=== PATIENT | male | born 1955 | race African-American/Black ===

== ENCOUNTER 2022-07-08 13:28 | Inpatient (IN) ==
[2022-07-08] MEDS ORDERED: ASPIRIN 325 MG TABLET PO STA (14:02)
[2022-07-08] MEDS ORDERED: NITROGLYCERIN SL 0.4 MG TABLET SL PRN (14:02)
[2022-07-08] MEDS ORDERED: hydrALAZINE 20 MG/1 ML VIAL IV STA ×2 (14:03→15:34)
[2022-07-08 14:20] LABS: Basophils % 0.4 % (0.0-0.8); Eosinophils # 0.1 10*3/uL (0.0-0.87); Eosinophils % 0.8 % (0.00-10.9); Hematocrit 38.8 VOL% (42.0-52.0); Hemoglobin 11.8 GM/DL (14.0-18.0); Immature Granulocytes % 0.9 %; Immature Granulocytes Absolute 0.09 #; Lymphocytes # 1.4 10*3/uL (1.4-4.0); Lymphocytes % 13.3 % (21.2-54.2); Mean Corpuscular HGB Conc 30.4 GM/DL (32-36); Mean Corpuscular Volume 86.4 FL (87-102); Mean Platelet Volume 10.6 FL (9.6-12.0); Monocytes # 1.1 10*3/uL (0.11-0.8); Monocytes % 10.5 % (1.7-12.7); NRBC # 0.04 10*3/uL; Neutrophils % 74.1 % (38.7-73.9); Platelet Count 243 T/CUMM (130-400); Red Blood Count 4.49 MC/CUMM (3.8-5.5); Red Cell Distribution Width 15.9 % (9.3-17.3); White Blood Count 10.5 T/CUMM (4-12)
[2022-07-08 14:32] LABS: INR 1.1; PT Patient Result 11.9 SECS (10.1-12.1); Partial Thromboplastin Time 24.3 SECS (23.7-32.9)
[2022-07-08 14:44] LABS: Albumin 3.3 G/DL (3.4-5.0); Bilirubin,Total 0.6 MG/DL (0.20-1.00); Calcium 8.8 MG/DL (8.5-10.1); Osmolality,Calculated 290.5 MOS/KG (273-304); Potassium 3.2 MMOL/L (3.5-5.1); Total Protein 7.4 G/DL (6.4-8.2)
[2022-07-08] MEDS ORDERED: MORPHINE 2 MG/1 ML SYRINGE IV STA (15:35)
[2022-07-08] MEDS ORDERED: MORPHINE 2 MG/1 ML SYRINGE ONE (15:35)
[2022-07-08] MEDS ORDERED: FUROSEMIDE 40 MG/4 ML VIAL IV STA (15:46)
[2022-07-08] MEDS ORDERED: SODIUM CHLORIDE 0.9% 2,000 ML IV STA (17:22)
[2022-07-08] MEDS ORDERED: APIXABAN 5 MG TABLET PO STA (17:22)
[2022-07-08] MEDS ORDERED: HYDROmorphone 1 MG/1 ML SYRINGE IV PRN (17:54)
[2022-07-08] MEDS ORDERED: ONDANSETRON 4 MG/2 ML VIAL IV PRN (17:54)
[2022-07-08] MEDS ORDERED: DEXTROSE 10% 250 ML BAG IV PRN (17:58)
[2022-07-08] MEDS ORDERED: DEXTROSE 50% 25 GM/50 ML VIAL IV PRN (17:58)
[2022-07-08] MEDS ORDERED: GLUCAGON 1 MG VIAL IM PRN (17:58)
[2022-07-08] MEDS ORDERED: POTASSIUM CHLORIDE 20 MEQ TABLET PO ONE (20:48)
[2022-07-08] MEDS: cloNIDine 0.1 MG TABLET PO SCH (22:30)
[2022-07-08] MEDS: ATORVASTATIN 40 MG TABLET PO SCH (22:30)
[2022-07-08] MEDS: GABAPENTIN 300 MG CAPSULE PO SCH (22:30)
[2022-07-08] MEDS: LABETALOL 100 MG TABLET PO SCH (22:30)
[2022-07-08] MEDS: SODIUM CHLORIDE 0.9% 1,000 ML IV SCH (22:30)
[2022-07-09 06:08] LABS: Basophils % 0.3 % (0.0-0.8); Eosinophils # 0.1 10*3/uL (0.0-0.87); Eosinophils % 0.8 % (0.00-10.9); Hematocrit 37.9 VOL% (42.0-52.0); Hemoglobin 11.9 GM/DL (14.0-18.0); Immature Granulocytes % 1.2 %; Lymphocytes # 1.7 10*3/uL (1.4-4.0); Lymphocytes % 19.9 % (21.2-54.2); Mean Corpuscular HGB Conc 31.4 GM/DL (32-36); Mean Corpuscular Volume 85.7 FL (87-102); Mean Platelet Volume 10.7 FL (9.6-12.0); Monocytes # 1.4 10*3/uL (0.11-0.8); Monocytes % 15.9 % (1.7-12.7); NRBC # 0.02 10*3/uL; Neutrophils % 61.9 % (38.7-73.9); Platelet Count 276 T/CUMM (130-400); Red Blood Count 4.42 MC/CUMM (3.8-5.5); Red Cell Distribution Width 15.8 % (9.3-17.3); White Blood Count 8.6 T/CUMM (4-12)
[2022-07-09 06:24] LABS: Calcium 8.8 MG/DL (8.5-10.1); Osmolality,Calculated 287.5 MOS/KG (273-304); Potassium 3.1 MMOL/L (3.5-5.1)
[2022-07-09 06:53] LABS: Anisocytosis Slight; Band Neutrophils 2 % (0-10); Eosinophils 1 % (0-10); Lymphocytes 22 % (20-55); Metamyelocytes 1 %; Nucleated Red Blood Cells 1 /100 WBC (0-5); Platelet Estimate Normal; Total Cells Counted 100
[2022-07-09] MEDS: INSULIN REGULAR 100 UNIT/ML SUBCUT SCH ×2 (08:44→16:32)
[2022-07-09] MEDS: FUROSEMIDE 40 MG/4 ML VIAL IV SCH (08:44)
[2022-07-09] MEDS: cloNIDine 0.1 MG TABLET PO SCH ×3 (08:44→21:10)
[2022-07-09] MEDS: LABETALOL 100 MG TABLET PO SCH ×2 (08:45→21:08)
[2022-07-09] MEDS: ASPIRIN EC 81 MG TABLET PO SCH (08:45)
[2022-07-09] MEDS: allopurinoL 300 MG TABLET PO SCH (08:45)
[2022-07-09] MEDS: DOCUSATE SODIUM 100 MG CAPSULE PO SCH (08:45)
[2022-07-09] MEDS: metOLazone 2.5 MG TABLET PO SCH (08:45)
[2022-07-09] MEDS: APIXABAN 5 MG TABLET PO SCH ×2 (08:45→21:09)
[2022-07-09] MEDS: PANTOPRAZOLE 40 MG TABLET PO SCH (08:45)
[2022-07-09] MEDS: POTASSIUM CHLORIDE 20 MEQ TABLET PO PRN ×2 (08:46→14:00)
[2022-07-09] MEDS: LINACLOTIDE 145 MCG CAPSULE PO SCH (08:46)
[2022-07-09] MEDS: amLODIPine 10 MG TABLET PO SCH (08:46)
[2022-07-09] MEDS: ISOSORBIDE MONONITRATE 60 MG TABLET PO SCH (08:46)
[2022-07-09] MEDS ORDERED: hydrALAZINE 25 MG TABLET PO SCH (09:00)
[2022-07-09] MEDS ORDERED: LOSARTAN 25 MG TABLET PO SCH (09:00)
[2022-07-09] MEDS ORDERED: POTASSIUM CHLORIDE 20 MEQ TABLET PO SCH (09:00)
[2022-07-09] MEDS ORDERED: MAGNESIUM SULF RIDER 2 GM/50 ML PREMIX IV ONE (12:19)
[2022-07-09] MEDS: LIDOCAINE 5% PATCH TRANSDERM SCH (14:04)
[2022-07-09] MEDS: SODIUM CHLORIDE 0.9% 1,000 ML IV SCH (16:06)
[2022-07-09] MEDS: GABAPENTIN 300 MG CAPSULE PO SCH (21:09)
[2022-07-09] MEDS: ATORVASTATIN 40 MG TABLET PO SCH (21:10)
[2022-07-10] MEDS ORDERED: MAGNESIUM SULF RIDER 2 GM/50 ML PREMIX IV ONE (06:00)
[2022-07-10 06:20] LABS: Calcium 9.3 MG/DL (8.5-10.1); Osmolality,Calculated 290.3 MOS/KG (273-304); Potassium 3.4 MMOL/L (3.5-5.1)
[2022-07-10] MEDS: amLODIPine 10 MG TABLET PO SCH (08:52)
[2022-07-10] MEDS: ISOSORBIDE MONONITRATE 60 MG TABLET PO SCH (08:52)
[2022-07-10] MEDS: APIXABAN 5 MG TABLET PO SCH ×2 (08:52→20:55)
[2022-07-10] MEDS: ASPIRIN EC 81 MG TABLET PO SCH (08:52)
[2022-07-10] MEDS: cloNIDine 0.1 MG TABLET PO SCH ×3 (08:53→20:55)
[2022-07-10] MEDS: PANTOPRAZOLE 40 MG TABLET PO SCH (08:53)
[2022-07-10] MEDS: allopurinoL 300 MG TABLET PO SCH (08:53)
[2022-07-10] MEDS: LABETALOL 100 MG TABLET PO SCH ×2 (08:53→20:54)
[2022-07-10] MEDS: FUROSEMIDE 40 MG/4 ML VIAL IV SCH (08:54)
[2022-07-10] MEDS: DOCUSATE SODIUM 100 MG CAPSULE PO SCH (08:54)
[2022-07-10] MEDS: metOLazone 2.5 MG TABLET PO SCH (08:54)
[2022-07-10] MEDS: LIDOCAINE 5% PATCH TRANSDERM SCH (08:55)
[2022-07-10] MEDS: INSULIN REGULAR 100 UNIT/ML SUBCUT SCH ×2 (08:58→15:50)
[2022-07-10] MEDS: LINACLOTIDE 145 MCG CAPSULE PO SCH (10:23)
[2022-07-10] MEDS: POTASSIUM CHLORIDE 20 MEQ TABLET PO PRN ×3 (11:45→16:31)
[2022-07-10] MEDS ORDERED: MAGNESIUM SULF RIDER 4 GM/100 ML PREMIX IV PRN (14:21)
[2022-07-10] MEDS ORDERED: POTASSIUM CHLORIDE RIDER 10 MEQ/100 ML PREMIX IV PRN (14:21)
[2022-07-10] MEDS: ATORVASTATIN 40 MG TABLET PO SCH (20:55)
[2022-07-10] MEDS: GABAPENTIN 300 MG CAPSULE PO SCH (20:55)
[2022-07-11 04:36] LABS: Basophils % 0.2 % (0.0-0.8); Eosinophils % 0.2 % (0.00-10.9); Hematocrit 38.1 VOL% (42.0-52.0); Immature Granulocytes % 1.3 %; Immature Granulocytes Absolute 0.23 #; Lymphocytes # 1.2 10*3/uL (1.4-4.0); Lymphocytes % 6.6 % (21.2-54.2); Mean Corpuscular HGB Conc 31.5 GM/DL (32-36); Mean Corpuscular Volume 83.9 FL (87-102); Mean Platelet Volume 10.1 FL (9.6-12.0); Monocytes # 2.4 10*3/uL (0.11-0.8); Monocytes % 13.5 % (1.7-12.7); Neutrophils % 78.2 % (38.7-73.9); Platelet Count 256 T/CUMM (130-400); Red Blood Count 4.54 MC/CUMM (3.8-5.5); Red Cell Distribution Width 15.7 % (9.3-17.3)
[2022-07-11 04:54] LABS: Calcium 8.8 MG/DL (8.5-10.1); Osmolality,Calculated 292.5 MOS/KG (273-304); Potassium 3.6 MMOL/L (3.5-5.1)
[2022-07-11 04:58] LABS: Albumin 2.8 G/DL (3.4-5.0); Osmolality,Calculated 292.5 MOS/KG (273-304); Potassium 3.6 MMOL/L (3.5-5.1); Total Protein 7.6 G/DL (6.4-8.2)
[2022-07-11] MEDS: LIDOCAINE 5% PATCH TRANSDERM SCH (08:12)
[2022-07-11] MEDS: INSULIN REGULAR 100 UNIT/ML SUBCUT SCH ×2 (08:12→16:36)
[2022-07-11] MEDS: DOCUSATE SODIUM 100 MG CAPSULE PO SCH (08:13)
[2022-07-11] MEDS: LABETALOL 100 MG TABLET PO SCH ×2 (08:13→21:49)
[2022-07-11] MEDS: cloNIDine 0.1 MG TABLET PO SCH ×3 (08:14→21:49)
[2022-07-11] MEDS: amLODIPine 10 MG TABLET PO SCH (08:14)
[2022-07-11] MEDS: ASPIRIN EC 81 MG TABLET PO SCH (08:14)
[2022-07-11] MEDS: ISOSORBIDE MONONITRATE 60 MG TABLET PO SCH (08:14)
[2022-07-11] MEDS: allopurinoL 300 MG TABLET PO SCH (08:14)
[2022-07-11] MEDS: PANTOPRAZOLE 40 MG TABLET PO SCH (08:15)
[2022-07-11] MEDS: FUROSEMIDE 40 MG/4 ML VIAL IV SCH (08:15)
[2022-07-11] MEDS: APIXABAN 5 MG TABLET PO SCH ×2 (08:15→21:50)
[2022-07-11] MEDS: metOLazone 2.5 MG TABLET PO SCH (08:15)
[2022-07-11] MEDS: LINACLOTIDE 145 MCG CAPSULE PO SCH (08:16)
[2022-07-11] MEDS: MAGNESIUM OXIDE 400 MG TABLET PO SCH ×2 (09:21→21:50)
[2022-07-11 15:44] LABS: Bacteria,Urine Moderate /HPF (Few); RBC,Urine 16 /HPF (0-4); Squamous Epithelial Cell,Urine Occasional /HPF (0-10)
[2022-07-11 15:57] LABS: Glucose,Urine (UA) Negative (Negative); Ketones,Urine Negative (Negative); Protein,Urine 30 mg/dL (Negative); Urine Appearance Clear (Clear); Urine Color Yellow (Yellow); Urine Specific Gravity 1.015 (1.001-1.035); Urine pH 5.5 (4.5-8.0)
[2022-07-11 15:58] LABS: Bilirubin,Urine Negative (Negative); Blood, Urine Moderate mg/dL (Negative); Nitrite,Urine Positive (Negative); Urine Urobilinogen 0.2 eU/dL (<2.0)
[2022-07-11] MEDS ORDERED: cefTRIAXone 1,000 MG in SODIUM CHLORIDE 0.9% 100 ML IV ONE (16:08)
[2022-07-11] MEDS: FUROSEMIDE 40 MG TABLET PO SCH (16:27)
[2022-07-11] MEDS: ATORVASTATIN 40 MG TABLET PO SCH (21:49)
[2022-07-11] MEDS: GABAPENTIN 300 MG CAPSULE PO SCH (21:49)
[2022-07-11] MEDS: ACETAMINOPHEN 325 MG TABLET PO PRN (21:50)
[2022-07-12 04:50] LABS: Basophils # 0.1 10*3/uL (0.0-0.2); Basophils % 0.3 % (0.0-0.8); Immature Granulocytes % 2.9 %; Immature Granulocytes Absolute 0.66 #; Lymphocytes # 1.5 10*3/uL (1.4-4.0); Lymphocytes % 6.8 % (21.2-54.2); Mean Corpuscular HGB Conc 31.6 GM/DL (32-36); Mean Corpuscular Volume 83.5 FL (87-102); Mean Platelet Volume 10.5 FL (9.6-12.0); Monocytes # 2.8 10*3/uL (0.11-0.8); Monocytes % 12.4 % (1.7-12.7); Neutrophils % 77.6 % (38.7-73.9); Platelet Count 245 T/CUMM (130-400); Red Blood Count 4.55 MC/CUMM (3.8-5.5); Red Cell Distribution Width 15.6 % (9.3-17.3); White Blood Count 22.4 T/CUMM (4-12)
[2022-07-12] MEDS: ACETAMINOPHEN 325 MG TABLET PO PRN (05:00)
[2022-07-12 05:07] LABS: Osmolality,Calculated 285.4 MOS/KG (273-304); Potassium 3.3 MMOL/L (3.5-5.1)
[2022-07-12 05:14] LABS: Band Neutrophils 2 % (0-10); Hypochromia Slight; Lymphocytes 7 % (20-55); Target Cells Slight; Total Cells Counted 100
[2022-07-12 05:15] LABS: Microcytosis Slight
[2022-07-12] MEDS ORDERED: cefTRIAXone 1,000 MG in SODIUM CHLORIDE 0.9% 100 ML IV ONE (09:00)
[2022-07-12] MEDS: FUROSEMIDE 40 MG TABLET PO SCH ×2 (09:30→15:00)
[2022-07-12] MEDS: MAGNESIUM OXIDE 400 MG TABLET PO SCH (09:30)
[2022-07-12] MEDS: APIXABAN 5 MG TABLET PO SCH (09:30)
[2022-07-12] MEDS: ISOSORBIDE MONONITRATE 60 MG TABLET PO SCH (09:30)
[2022-07-12] MEDS: cloNIDine 0.1 MG TABLET PO SCH ×2 (09:30→15:00)
[2022-07-12] MEDS: DOCUSATE SODIUM 100 MG CAPSULE PO SCH (09:31)
[2022-07-12] MEDS: amLODIPine 10 MG TABLET PO SCH (09:31)
[2022-07-12] MEDS: ASPIRIN EC 81 MG TABLET PO SCH (09:31)
[2022-07-12] MEDS: metOLazone 2.5 MG TABLET PO SCH (09:31)
[2022-07-12] MEDS: LABETALOL 100 MG TABLET PO SCH (09:31)
[2022-07-12] MEDS: PANTOPRAZOLE 40 MG TABLET PO SCH (09:31)
[2022-07-12] MEDS: allopurinoL 300 MG TABLET PO SCH (09:37)
[2022-07-12] MEDS: LINACLOTIDE 145 MCG CAPSULE PO SCH (09:39)
[2022-07-12] MEDS: LIDOCAINE 5% PATCH TRANSDERM SCH (09:39)
[2022-07-12] MEDS: INSULIN REGULAR 100 UNIT/ML SUBCUT SCH (11:43)
[2022-07-12] MEDS ORDERED: cefTRIAXone 1,000 MG VIAL IM ONE (11:49)
[2022-07-12] MEDS ORDERED: LIDOCAINE 1% 20 ML VIAL IM ONE (11:59)
[2022-07-12 12:16] VITALS: BP 143/66
[2022-07-12] MEDS ORDERED: LIDOCAINE 2% 20 ML VIAL INFILTRAT ONE (12:30)
== END 2022-07-12 16:12 | disposition home health service (06) | DRG 175 ==
LOC: N.ED 13:28 → N.EDINP 17:54 → N.TELEN 20:56
PROVIDERS: ADMIT Family Medicine; ATTEND Family Medicine